=== PATIENT | female | born 1950 | race Caucasian/White ===

== ENCOUNTER 2018-02-27 09:40 | Inpatient (IN) | payer MEDICARE, OTHER ==
[2018-02-23 12:17] VITALS: BP 145/82
[~2018-02-27] VITALS: Ht 157.5 cm; Wt 82.8 kg
[~2018-02-27 09:40] MED LIST: ASPI-496 PO; ATOR40TA78 PO; BUPIVACAINE/PF 0.25% ONE; CARV12.52 PO; CLON0.1T PO; HEPARIN 1,000 UNITS/ML, 10ML ONE; LIDOCAINE/PF 1%, 30ML ONE; MULT1TAB60 PO; PROTAMINE SULFATE 10 MG/ML, 5ML ONE; THROMBIN 20,000 UNIT VIAL TP ONE; VALS1TAB26 PO
[2018-02-27] MEDS ORDERED: LACTATED RINGERS 1,000 ML IV SCH (12:42)
[2018-02-27] MEDS ORDERED: LIDOCAINE-MPF 1%, 2ML INFIL ONE (13:00)
[2018-02-27 13:08] LABS: BASOPHILS # (AUTO) 0.02 x10^3/uL (0-0.1); BASOPHILS % (AUTO) 0 % (0-1); EOSINOPHILS # (AUTO) 0.21 x10^3/uL (0-0.4); EOSINOPHILS % (AUTO) 3 % (1-7); LYMPHOCYTES % (AUTO) 19 % (22-44); MD NO; MEAN CORPUSCULAR HEMOGLOBIN 27.7 pg (27.0-34.8); MEAN CORPUSCULAR HGB CONC 32.5 g/dL (32.4-35.8); MEAN CORPUSCULAR VOLUME 85.2 fL (80-100); MEAN PLATELET VOLUME 8.7 fL (7.4-10.4); MONOCYTES # (AUTO) 0.62 x10^3/uL (0.2-0.8); MONOCYTES % (AUTO) 8 % (2-9); NEUTROPHILS # (AUTO) 5.19 x10^3/uL (1.8-6.8); NEUTROPHILS % (AUTO) 70 % (42-75); PLATELET COUNT 206 x10^3/uL (130-400); RED BLOOD COUNT 4.07 x10^6/uL (3.82-5.3); RED CELL DISTRIBUTION WIDTH 13.8 % (9.6-15.2)
[2018-02-27] MEDS ORDERED: ACETAMINOPHEN 500 MG TABLET PO ONE (14:00)
[2018-02-27] MEDS ORDERED: ONDANSETRON ODT 8 MG PO ONE (14:00)
[2018-02-27] MEDS ORDERED: FENTANYL PF 250 MCG/5ML ONE (14:03)
[2018-02-27] MEDS ORDERED: GLYCOPYRROLATE 0.2MG/1ML, 5ML ONE (14:22)
[2018-02-27] MEDS ORDERED: PROPOFOL 10 MG/ML, 20ML ONE (14:22)
[2018-02-27] MEDS ORDERED: CEFAZOLIN 1,000 MG ONE (14:22)
[2018-02-27] MEDS ORDERED: DEXAMETHASONE 4 MG/ML, 1ML ONE (14:22)
[2018-02-27] MEDS ORDERED: LABETALOL 5MG/ML, 20ML ONE (14:22)
[2018-02-27] MEDS ORDERED: EPHEDRINE 50 MG/ML, 1ML ONE (14:22)
[2018-02-27] MEDS ORDERED: SUCCINYLCHOLINE 20 MG/ML, 10ML ONE (14:22)
[2018-02-27] MEDS ORDERED: ROCURONIUM 10 MG/ML,10ML ONE (14:22)
[2018-02-27] MEDS ORDERED: BUPIVACAINE/PF-EPI 0.25% 1:200K IM ONE (15:19)
[2018-02-27] MEDS ORDERED: HEPARIN 1,000 UNITS/ML, 1ML IV ONE (15:20)
[2018-02-27] MEDS ORDERED: THROMBIN 20,000 UNIT VIAL TP ONE (15:22)
[2018-02-27] MEDS ORDERED: LIDOCAINE/PF 1%, 30ML INFIL ONE (15:23)
[2018-02-27] MEDS ORDERED: hydrALAzine 20 MG/ML, 1ML ONE (16:22)
[2018-02-27] MEDS ORDERED: MORPHINE SULFATE 4 MG/ML, 1ML IVPush PRN (16:30)
[2018-02-27] MEDS ORDERED: ALBUTEROL SULFATE 2.5 MG/3 ML NPPB PRN (16:30)
[2018-02-27] MEDS ORDERED: hydrALAzine 20 MG/ML, 1ML IV PRN ×2 (16:30→19:30)
[2018-02-27] MEDS ORDERED: MIDAZOLAM 1 MG/ML, 2ML IV PRN (16:30)
[2018-02-27] MEDS ORDERED: ONDANSETRON ODT 8 MG PO PRN (16:30)
[2018-02-27] MEDS ORDERED: PROMETHAZINE 25 MG/ML, 1ML IV PRN (16:30)
[2018-02-27] MEDS ORDERED: MEPERIDINE/PF 25MG/0.5ML IVPush PRN (16:30)
[2018-02-27] MEDS ORDERED: PROMETHAZINE 12.5 MG SUPP PR PRN (16:30)
[2018-02-27] MEDS ORDERED: LABETALOL 5MG/ML, 20ML IV PRN (16:30)
[2018-02-27] MEDS ORDERED: OXYcodone 5 MG/5 ML ORAL.SOL UDC PO PRN (16:30)
[2018-02-27] MEDS ORDERED: OXYcodone 5 MG/5 ML ORAL.SOL UDC ONE (16:54)
[2018-02-27] MEDS ORDERED: FENTANYL PF 100 MCG/2ML ONE (17:19)
[2018-02-27] MEDS: FENTANYL PF 100 MCG/2ML IV PRN ×2 (17:24→17:58)
[2018-02-27] MEDS ORDERED: LABETALOL 5MG/ML, 20ML IVPush PRN (19:30)
[2018-02-27] MEDS ORDERED: HYDROcodone/APAP 5/325 TABLET PO PRN (19:30)
[2018-02-27] MEDS ORDERED: morphine SULFATE 10 MG/ML, 1ML IV PRN (19:30)
[2018-02-27] MEDS ORDERED: ONDANSETRON 2MG/ML, 2ML IV PRN (19:30)
[2018-02-27] MEDS ORDERED: ACETAMINOPHEN 325 MG SUPP PR PRN (19:30)
[2018-02-27] MEDS: ASPIRIN 325 MG TABLET EC PO SCH (20:47)
[2018-02-27] MEDS: LACTATED RINGERS 1,000 ML IV SCH (20:48)
[2018-02-27] MEDS: CEFAZOLIN PMX 2GM/100ML 100 ML IVPB SCH (20:49)
[2018-02-27] MEDS ORDERED: ATORVASTATIN 40 MG TABLET PO SCH (21:00)
[2018-02-28 00:15] VITALS: BP 146/63
[2018-02-28 04:16] VITALS: BP 162/66
[2018-02-28] MEDS: CEFAZOLIN PMX 2GM/100ML 100 ML IVPB SCH (04:25)
[2018-02-28 05:03] VITALS: BP 165/72
[2018-02-28] MEDS ORDERED: CARVEDILOL 12.5 MG TABLET PO SCH (06:00)
[2018-02-28] MEDS: LACTATED RINGERS 1,000 ML IV SCH (07:16)
[2018-02-28 07:42] VITALS: BP 126/56
[2018-02-28] MEDS ORDERED: HYDROCHLOROTHIAZIDE 25 MG TABLET PO SCH (09:00)
[2018-02-28] MEDS ORDERED: VALSARTAN 160 MG TABLET PO SCH (09:00)
[2018-02-28] MEDS: ASPIRIN 325 MG TABLET EC PO SCH (10:56)
[2018-02-28] MEDS ORDERED: HYDR-3240 PO (11:51)
== END 2018-02-28 12:02 | disposition home or self-care (01) | DRG 38 ==
LOC: ORIP 11:47 → 4NOR 18:59 → DCLOUNGE 02-28 11:54
PROVIDERS: ADMIT Surgery; ATTEND Surgery
PROC: 03CL0ZZ Extirpation of Matter from Left Internal Carotid Artery, Open Approach (ICD-10-PCS; 2018-02-27)
PROC: 03CN0ZZ Extirpation of Matter from Left External Carotid Artery, Open Approach (ICD-10-PCS; 2018-02-27)
PROC: 03UJ0KZ Supplement Left Common Carotid Artery with Nonautologous Tissue Substitute, Open Approach (ICD-10-PCS; 2018-02-27)
PROC: 03UN0KZ Supplement Left External Carotid Artery with Nonautologous Tissue Substitute, Open Approach (ICD-10-PCS; 2018-02-27)
PROC: 03UL0KZ Supplement Left Internal Carotid Artery with Nonautologous Tissue Substitute, Open Approach (ICD-10-PCS; 2018-02-27)
PROC: 03CJ0ZZ Extirpation of Matter from Left Common Carotid Artery, Open Approach (ICD-10-PCS; principal; 2018-02-27 14:00)
DX: I65.23 Occlusion and stenosis of bilateral carotid arteries (principal); I69.854 Hemiplegia and hemiparesis following other cerebrovascular disease affecting left non-dominant side; E78.00 Pure hypercholesterolemia, unspecified; I10 Essential (primary) hypertension; I73.9 Peripheral vascular disease, unspecified; J44.9 Chronic obstructive pulmonary disease, unspecified; Z90.49 Acquired absence of other specified parts of digestive tract; Z91.013 Allergy to seafood
CPT/HCPCS: 36415; 85025; 86850; 86900; J0690; J1100; J1644; J2704; J2720; J3010; J3490; Q0162; C1768; J0330; J0360; J7120